=== PATIENT | female | born 2005 ===

== ENCOUNTER 2023-03-15 16:21 | Inpatient (IN) | payer OTHER, SELFPAY ==
[2023-03-15 17:03] VITALS: BP 118/68; PULSE 88; RESP 16; TEMP 36.7; O2SAT 98
--- NOTE | 2023-03-15 17:57 | P.CONHOSP_ITS ---
History of Present Illness Data of Consult Service Date: 03/15/23 Requesting physician: Jorge L Felder Primary Care Provider: Unknown Physician HPI Reason for consult: medical H&P 17-year-old female with history of bipolar disorder, insomnia admitted to Psychiatry with consult placed to hospitalist service for medical H& P. She is sleeping initially on arrival but is easily woken though remains sleepy during exam. She has no other complaints other than feeling fatigued and reports constipation. She denies any alcohol use, illicit drug use, or cigarette smoking but does vape nicotine. Review of Systems Review of Systems: General: No fevers, malaise, unintentional weight loss HEENT: No blurred vision, diplopia. No sore throat, nasal congestion, rhinorrhea, sinus pain, ear pain Cardiovascular: No chest pain, palpitations, or leg edema Respiratory: No shortness of breath, wheezing, cough GI: +constipation. No abdominal pain, nausea, vomiting, diarrhea, melena, hematochezia : No dysuria, hematuria, increased urinary frequency, decreased urinary output MSK: No myalgia, back pain Neuro: No headaches, weakness, paresthesias Skin: No rashes or lesions [facility] Medical History (Updated 03/15/23 @ 17:59 by WILLY Pichardo) No pertinent past medical history Social History Advance Directives: No Advance Directives Information Provided: Yes Meds Allergies Allergy/AdvReac Type Severity Reaction Status Date / Time No Known Allergies Allergy Verified 03/15/23 16:23 Active Medications: Current Medications Acetaminophen (Acetaminophen 325 Mg Tablet) 650 mg PO Q6H PRN PRN Reason: Headache/Pain Mild Scale (1-3) Al Hydroxide/Mg Hydroxide (Magnesium Hydrox/Alum Hydrox 30 Ml Oral.Susp) 30 ml PO Q6H PRN PRN Reason: Heartburn/Nausea Chlorpromazine HCl (Chlorpromazine Hcl 25 Mg Tablet) 50 mg PO Q4H PRN PRN Reason: agitation Hydroxyzine HCl (Hydroxyzine Hcl 25 Mg Tablet) 25 mg PO Q6H PRN PRN Reason: Anxiety Lorazepam (Lorazepam 1 Mg Tablet) 2 mg PO Q4H PRN PRN Reason: agitation Magnesium Hydroxide (Milk Of Magnesia 30 Ml Oral.Susp) 30 ml PO DAILY PRN PRN Reason: Constipation Nicotine Polacrilex (Nicotine Polacrilex 2 Mg Gum) 4 mg BUCCAL Q2H PRN PRN Reason: Nicotine Cravings Trazodone HCl (Trazodone Hcl 50 Mg Tablet) 50 mg PO BEDTIME MRX1 PRN PRN Reason: Insomnia Physical Exam Vital Signs and Narrative: Vital Signs: Last Vital Signs Temp 98.1 F 03/15/23 17:03 Pulse 88 03/15/23 17:03 Resp 16 03/15/23 17:03 BP 118/68 03/15/23 17:03 Pulse Ox 98 03/15/23 17:03 O2 Del Method Room Air 03/15/23 17:03 Constitutional - Somnolent but arousable, No apparent distress Eyes - PERRLA, EOMI Cardiovascular - S1S2, RRR, No edema Respiratory - Normal lung expansion, Normal respiratory effort, No respiratory distress, CTA bilaterally Gastrointestinal - NT / ND; +BS; No rebound or guarding Extremities - no calf tenderness bilaterally, no swelling Musculoskeletal - Normal inspection, normal ROM Skin - Warm/Dry Neurological - awake & oriented x3, CN II-XII in tact, 5/5 strength BUE and BLE Psychological - Appropriate affect Assessment and Plan (1) Routine medical exam: Status: Acute Plan .17-year-old female with history of bipolar disorder, insomnia admitted to Psychiatry with consult placed to hospitalist service for medical H& P. #Mood disorder -plan per psychiatry #Constipation -miralax prn #Nicotine vapin -NRT prn Thank you for allowing me to participate in this consult. Signing off at this time. Please do not hesitate to call for further questions. Time Spent With Patient Time: Total time managing care of this patient today ____ minutes.
[2023-03-15 18:20] VITALS: BMI 30.3
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
[2023-03-15] MEDS: chlorproMAZINE HCl 25 MG TABLET 50 MG PO (19:11)
[2023-03-15] MEDS: LORazepam 1 MG TABLET 2 MG PO (19:11)
[2023-03-15 20:20] VITALS: BP 112/71; PULSE 103; RESP 17; TEMP 36.7; O2SAT 98
[2023-03-16] MEDS: Magnesium Hydrox/Alum Hydrox 30 ML ORAL.SUSP PO (08:24)
[2023-03-16] MEDS: chlorproMAZINE HCl 25 MG TABLET 50 MG PO ×3 (08:24→20:42)
[2023-03-16] MEDS: hydrOXYzine HCL 25 MG TABLET PO (08:24)
[2023-03-16] MEDS: LORazepam 1 MG TABLET 2 MG PO ×2 (08:24→13:31)
[2023-03-16 09:29] LABS: Estimated Average Glucose 91 mg/dL; Hemoglobin A1c % 4.8 %
[2023-03-16 09:33] VITALS: BP 124/85; PULSE 114; RESP 18; TEMP 36.6; O2SAT 99
[2023-03-16 09:39] LABS: Alanine Aminotransferase 17 U/L (0-31); Alkaline Phosphatase 58 U/L (39-117); Anion Gap 11 (12-20); Aspartate Amino Transferase 18 U/L (5-31); Bilirubin Total 0.2 mg/dL (0.0-1.0); Blood Urea Nitrogen 13 mg/dL (9-16); Calcium 9.4 mg/dL (8.4-10.2); Chloride 107 mmol/L (96-108); Cholesterol 117 mg/dL; Creatinine Clr Calc Pharmacy 127.4; Estimated Glomerular Filt Rate > 60; Glucose Fasting 70 mg/dL (60-99); HDL Cholesterol 46 mg/dL; LDL Cholesterol Calculated 64 mg/dl; Potassium 4.3 mmol/L (3.3-5.1); Sodium 138 mmol/L (135-145); Total Protein 6.5 g/dL (6.5-8.0); Triglycerides 39 mg/dL
[2023-03-16 09:53] LABS: Carbon Dioxide 24 mmol/L (22-29)
[2023-03-16 09:54] LABS: Free T4 (Free Thyroxine) 0.85 ng/dL (0.71-1.85); Thyroid Stimulating Hormone 2.45 uIU/mL (0.32-4.0)
[2023-03-16 10:07] LABS: Folate 8.1 ng/mL (> or = 4.0); Vitamin B12 267 pg/mL (200-900)
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
[2023-03-16] MEDS: LORazepam 1 MG TABLET PO (19:24)
[2023-03-16] MEDS: OLANZapine ODT 10 MG TAB.RAPDIS TRANSLINGU (19:24)
[2023-03-16 20:27] VITALS: BP 120/80; PULSE 111; RESP 16; TEMP 36.6; O2SAT 99
[2023-03-16] MEDS: traZODone HCL 50 MG TABLET PO (20:48)
[2023-03-17 06:00] VITALS: BP 134/60; PULSE 84; RESP 18; TEMP 36.8; O2SAT 98
[2023-03-17] MEDS: LORazepam 1 MG TABLET PO ×3 (09:06→21:24)
[2023-03-17] MEDS: hydrOXYzine HCL 25 MG TABLET PO (09:06)
[2023-03-17] MEDS: chlorproMAZINE HCl 25 MG TABLET 50 MG PO ×2 (09:06→21:25)
--- NOTE | 2023-03-17 14:36 | HO.PSYCHPN ---
Subjective Subjective Date of Service: 03/17/23 Reason For Visit: F31.9 Subjective Notes: 3 Day ( 03/22/2023) Medical Problems Affecting Mental Status: No Interim History: met patient. Discussed with Nursing. Chart reviewed. As per nursing slightly more anxious. On telephone may be arguing with boyfriend and also upset with mother. Three-day notice which on 03/22/2023. Patient wants to continue with three-day notice process. Reports sleep has been poor, feeling more labile and upset. Also reports wanting to be discharged to stay with her boyfriend in [place] and return to work. Denies SI. Denies overt paranoia or hallucinations. We discussed that olanzapine 10 mg a just been started and therefore monitoring same rather than making additional medication changes. [place] okay regarding this plan. Medication Compliance: Yes Side effects from medications: No Attending Groups: Intermittent Review of Systems Acute medical concerns: No Review of Systems Review of Systems Unremarkable Mental Status Exam Mental Status Exam Narrative: Pt is alert and oriented; behavior is cooperative and calm; patient is not in distress; dressed in casual attire with unkempt hair; mood is described as ok ; eye contact appropriate; Speech is slow, volume and prosody and not pressured; no psychomotor agitation/retardation present; thought process is organized and goal directed; Thought content is on being discharged; no overt delusional thoughts; denies HI. denies current suicidal ideation. denies current auditory hallucinations. Denies VH. Patients insight and judgment are poor. Diagnostics Vital Signs (24Hr): Vital Signs - 24 hr 03/16/23 20:27 03/17/23 06:00 Temperature 97.8 F 98.3 F Pulse Rate 111 H 84 Respiratory Rate 16 18 Blood Pressure 120/80 134/60 Pulse Oximetry 99 98 Oxygen Delivery Method Room Air Room Air BMI result Body Mass Index 30.3 Labs 03/16/23 08:53 Labs: Laboratory Results - last 48 hr 03/16/23 03/16/23 03/16/23 08:53 08:53 08:53 Sodium 138 Potassium 4.3 Chloride 107 Carbon Dioxide 24 Anion Gap 11 L BUN 13 Creatinine 0.70 Estim Creat Clear Calc 127.4 Estimated GFR > 60 Fasting Glucose 70 Estimat Average Glucose 91 Hemoglobin A1c % 4.8 Calcium 9.4 Total Bilirubin 0.2 AST 18 ALT 17 Alkaline Phosphatase 58 Total Protein 6.5 Albumin 4.0 Triglycerides 39 Cholesterol 117 LDL Cholesterol, Calc 64 HDL Cholesterol 46 Vitamin B12 267 Folate 8.1 TSH 2.45 Free T4 0.85 Medications Medications Current Medications Acetaminophen (Acetaminophen 325 Mg Tablet) 650 mg PO Q6H PRN PRN Reason: Headache/Pain Mild Scale (1-3) Al Hydroxide/Mg Hydroxide (Magnesium Hydrox/Alum Hydrox 30 Ml Oral.Susp) 30 ml PO Q6H PRN PRN Reason: Heartburn/Nausea Last Admin: 03/16/23 08:24 Dose: 30 ml Chlorpromazine HCl (Chlorpromazine Hcl 25 Mg Tablet) 50 mg PO Q4H PRN PRN Reason: symptoms of psychosis Last Admin: 03/17/23 09:06 Dose: 50 mg Hydroxyzine HCl (Hydroxyzine Hcl 25 Mg Tablet) 25 mg PO Q6H PRN PRN Reason: Anxiety Last Admin: 03/17/23 09:06 Dose: 25 mg Lorazepam (Lorazepam 1 Mg Tablet) 1 mg PO Q4H PRN PRN Reason: agitation Last Admin: 03/17/23 09:06 Dose: 1 mg Magnesium Hydroxide (Milk Of Magnesia 30 Ml Oral.Susp) 30 ml PO DAILY PRN PRN Reason: Constipation Nicotine Polacrilex (Nicotine Polacrilex 2 Mg Gum) 4 mg BUCCAL Q2H PRN PRN Reason: Nicotine Cravings Olanzapine (Olanzapine Odt 10 Mg Tab.Rapdis) 10 mg TRANSLINGU BEDTIME CARLIE Last Admin: 03/16/23 19:24 Dose: 10 mg Polyethylene Glycol (Polyethylene Glycol 3350 17 Gm Powd.Pack) 17 gm PO DAILY PRN PRN Reason: Constipation Trazodone HCl (Trazodone Hcl 50 Mg Tablet) 50 mg PO BEDTIME MRX1 PRN PRN Reason: Insomnia Last Admin: 03/16/23 20:48 Dose: 50 mg Allergies Allergies Allergy/AdvReac Type Severity Reaction Status Date / Time No Known Allergies Allergy Verified 03/15/23 16:23 Assessment & Plan Assessment & Plan (1) Schizoaffective disorder: Status: Acute Code(s): F25.9 - Schizoaffective disorder, unspecified Plan Patient is a 17 year old female with hx of bipolar d/o who presented to [facility] ER via EMS after mother and boyfriend reported that patient was making suicidal statements. Patient was recently discharged 4 days ago from an inpatient psychiatric unit in [place]. Plan: 3 day 15 minute checks Obtain collateral Release obtained for [facility]; faxed; waiting on medical records Bipolar vs vs Schizoaffective Clarify recent adm and tx ? RADER had mood stabilizing agaent been used bipolar fam hx monitor response to olanzapine pt seen case reviewed tx team tx plan discussed with DIRECTOR BUSINESS TRAVEL Start: Zyprexa 10mg PO bedtime 03/17/2023: No changes to current treatment plan Reason for continued inpatient stay Substantial Risk for: harm to self Time Spent With Patient Time: Total time managing care of this patient today ____ minutes.
[2023-03-17] MEDS: Nicotine Polacrilex 2 MG GUM 4 MG BUCCAL (16:38)
[2023-03-17 20:10] VITALS: BP 133/81; PULSE 110; RESP 18; TEMP 36.9; O2SAT 100
[2023-03-17] MEDS: OLANZapine ODT 10 MG TAB.RAPDIS TRANSLINGU (20:25)
[2023-03-17] MEDS: traZODone HCL 50 MG TABLET PO (21:24)
[2023-03-18] MEDS: polyethylene glycoL 3350 17 GM POWD.PACK PO (05:31)
[2023-03-18 08:27] VITALS: BP 122/72; PULSE 101; RESP 16; TEMP 36.2; O2SAT 99
[2023-03-18] MEDS: LORazepam 1 MG TABLET PO (10:25)
[2023-03-18] MEDS: chlorproMAZINE HCl 25 MG TABLET 50 MG PO ×2 (10:25→16:53)
--- NOTE | 2023-03-18 13:49 | HO.PSYCHPN ---
Subjective Subjective Date of Service: 03/18/23 Reason For Visit: F31.9 Subjective Notes: 3 Day Medical Problems Affecting Mental Status: No Interim History: met patient. Discussed with Nursing. Chart reviewed. Less anxious. ?constipation, GERD, nicotine withdrawal. Three-day notice which on 03/22/2023. Patient wants to continue with three-day notice process. Reports sleep has been beter and mood more jessica. Would like olanzapine increased to minimize prn meds which are sedating. Denies SI. Denies overt paranoia or hallucinations. Denied GERD symptoms or nicotine withdrawal. Some constipation- open to colace. Medication Compliance: Yes Side effects from medications: No Attending Groups: Yes Review of Systems Acute medical concerns: No Review of Systems Review of Systems constipation Mental Status Exam Mental Status Exam Narrative: Pt is alert and oriented; behavior is cooperative and calm; patient is not in distress; dressed in casual attire with unkempt hair; mood is described as ok ; eye contact appropriate; Speech is slow, volume and prosody and not pressured; no psychomotor agitation/retardation present; thought process is organized and goal directed; Thought content is on being discharged; no overt delusional thoughts; denies HI. denies current suicidal ideation. denies current auditory hallucinations. Denies VH. Patients insight and judgment are poor. Diagnostics Vital Signs (24Hr): Vital Signs - 24 hr 03/17/23 20:10 03/18/23 08:27 Temperature 98.4 F 97.1 F Pulse Rate 110 H 101 H Respiratory Rate 18 16 Blood Pressure 133/81 122/72 Pulse Oximetry 100 99 Oxygen Delivery Method Room Air Room Air BMI result Body Mass Index 30.3 Labs 03/16/23 08:53 Medications Medications Current Medications Acetaminophen (Acetaminophen 325 Mg Tablet) 650 mg PO Q6H PRN PRN Reason: Headache/Pain Mild Scale (1-3) Al Hydroxide/Mg Hydroxide (Magnesium Hydrox/Alum Hydrox 30 Ml Oral.Susp) 30 ml PO Q6H PRN PRN Reason: Heartburn/Nausea Last Admin: 03/16/23 08:24 Dose: 30 ml Chlorpromazine HCl (Chlorpromazine Hcl 25 Mg Tablet) 50 mg PO Q4H PRN PRN Reason: symptoms of psychosis Last Admin: 03/18/23 10:25 Dose: 50 mg Hydroxyzine HCl (Hydroxyzine Hcl 25 Mg Tablet) 25 mg PO Q6H PRN PRN Reason: Anxiety Last Admin: 03/17/23 09:06 Dose: 25 mg Lorazepam (Lorazepam 1 Mg Tablet) 1 mg PO Q4H PRN PRN Reason: agitation Last Admin: 03/18/23 10:25 Dose: 1 mg Magnesium Hydroxide (Milk Of Magnesia 30 Ml Oral.Susp) 30 ml PO DAILY PRN PRN Reason: Constipation Nicotine Polacrilex (Nicotine Polacrilex 2 Mg Gum) 4 mg BUCCAL Q2H PRN PRN Reason: Nicotine Cravings Last Admin: 03/17/23 16:38 Dose: 4 mg Olanzapine (Olanzapine Odt 10 Mg Tab.Rapdis) 10 mg TRANSLINGU BEDTIME CARLIE Last Admin: 03/17/23 20:25 Dose: 10 mg Polyethylene Glycol (Polyethylene Glycol 3350 17 Gm Powd.Pack) 17 gm PO DAILY PRN PRN Reason: Constipation Last Admin: 03/18/23 05:31 Dose: 17 gm Trazodone HCl (Trazodone Hcl 50 Mg Tablet) 50 mg PO BEDTIME MRX1 PRN PRN Reason: Insomnia Last Admin: 03/17/23 21:24 Dose: 50 mg Allergies Allergies Allergy/AdvReac Type Severity Reaction Status Date / Time No Known Allergies Allergy Verified 03/15/23 16:23 Assessment & Plan Assessment & Plan (1) Schizoaffective disorder: Status: Acute Code(s): F25.9 - Schizoaffective disorder, unspecified Plan Patient is a 17 year old female with hx of bipolar d/o who presented to [facility] ER via EMS after mother and boyfriend reported that patient was making suicidal statements. Patient was recently discharged 4 days ago from an inpatient psychiatric unit in [place]. Plan: 3 day 15 minute checks Obtain collateral Release obtained for [facility]; faxed; waiting on medical records Bipolar vs vs Schizoaffective Clarify recent adm and tx ? RADER had mood stabilizing agaent been used bipolar fam hx monitor response to olanzapine pt seen case reviewed tx team tx plan discussed with BUSINESS INTERN Start: Zyprexa 10mg PO bedtime 03/18/2023: increase olanzapine to 15mg (pt request to minimize sedating prn med needs). Colace for constipation Reason for continued inpatient stay Substantial Risk for: inability to function Time Spent With Patient Time: Total time managing care of this patient today ____ minutes.
[2023-03-18] MEDS: Nicotine Polacrilex 2 MG GUM 4 MG BUCCAL (17:21)
[2023-03-18 20:08] VITALS: BP 125/88; PULSE 117; RESP 18; TEMP 36.3; O2SAT 99
[2023-03-19] MEDS: Nicotine Polacrilex 2 MG GUM 4 MG BUCCAL ×2 (05:39→10:49)
[2023-03-19 08:22] VITALS: BP 138/89; PULSE 103; RESP 18; TEMP 36.6; O2SAT 99
--- NOTE | 2023-03-19 09:52 | P.PNPSI_ITS ---
Subjective Subjective Date of Service: 03/19/23 Reason For Visit: F31.9 Subjective Notes: 3 Day Interim History: Reviewed in team and with Dr. Murphy. Patient presents calm and cooperative. She reports feeling better today. Patient stated, I'm not suicidal or homicidal. I'm not having any thoughts of the devil. The Zyprexa and Ativan helped me. Patient tearful during 1:1; stating she signed a 3 day d/t already being in the hospital for a month in [place] . Patient reports when she left the hospital in [place] she stopped taking Invega and she became worse and couldn't sleep . Patient reports she would like referrals to outpatient providers in the area. Medication Compliance: Yes Side effects from medications: No Attending Groups: Yes Review of Systems Constitutional: Reports as per HPI Eyes: Reports as per HPI Reports as per HPI Cardiovascular: Reports as per HPI Respiratory: Reports as per HPI Gastrointestinal: Reports as per HPI Genitourinary: Reports as per HPI Musculoskeletal: Reports as per HPI Skin/Breast: Reports as per HPI Reports as per HPI Psychiatric: Reports as per HPI Endocrine: Reports as per HPI Hematologic/Lymphatic: Reports as per HPI Allergic/Immunologic: Reports as per HPI Mental Status Exam Mental Status Exam Narrative: Pt is alert and oriented; behavior is cooperative and calm; patient is not in distress; dressed in casual attire; mood is described as good ; eye contact appropriate; Speech is normal rate, volume and prosody and not pressured; no psychomotor agitation/retardation present; thought process is organized and goal directed; Thought content is on tx; otherwise pertinent to relevant topics and without any delusional content, paranoid ideations or grandiosity; denies any SI/HI. There is no evidence of perceptual disturbance. Patients insight and judgment are fair. Diagnostics Vital Signs (24Hr): Vital Signs - 24 hr 03/18/23 20:08 03/19/23 08:22 Temperature 97.4 F 97.9 F Pulse Rate 117 H 103 H Respiratory Rate 18 18 Blood Pressure 125/88 138/89 Pulse Oximetry 99 99 Oxygen Delivery Method Room Air Room Air BMI result Body Mass Index 30.3 Labs 03/16/23 08:53 Medications Medications Current Medications Acetaminophen (Acetaminophen 325 Mg Tablet) 650 mg PO Q6H PRN PRN Reason: Headache/Pain Mild Scale (1-3) Al Hydroxide/Mg Hydroxide (Magnesium Hydrox/Alum Hydrox 30 Ml Oral.Susp) 30 ml PO Q6H PRN PRN Reason: Heartburn/Nausea Last Admin: 03/16/23 08:24 Dose: 30 ml Chlorpromazine HCl (Chlorpromazine Hcl 25 Mg Tablet) 50 mg PO Q4H PRN PRN Reason: symptoms of psychosis Last Admin: 03/18/23 16:53 Dose: 50 mg Docusate Sodium (Docusate Sodium 100 Mg Capsule) 100 mg PO BID CARLIE Last Admin: 03/19/23 08:45 Dose: 100 mg Hydroxyzine HCl (Hydroxyzine Hcl 25 Mg Tablet) 25 mg PO Q6H PRN PRN Reason: Anxiety Last Admin: 03/17/23 09:06 Dose: 25 mg Lorazepam (Lorazepam 1 Mg Tablet) 1 mg PO Q4H PRN PRN Reason: agitation Last Admin: 03/18/23 10:25 Dose: 1 mg Magnesium Hydroxide (Milk Of Magnesia 30 Ml Oral.Susp) 30 ml PO DAILY PRN PRN Reason: Constipation Nicotine Polacrilex (Nicotine Polacrilex 2 Mg Gum) 4 mg BUCCAL Q2H PRN PRN Reason: Nicotine Cravings Last Admin: 03/19/23 05:39 Dose: 4 mg Olanzapine (Olanzapine Odt 10 Mg Tab.Rapdis) 15 mg TRANSLINGU BEDTIME CARLIE Last Admin: 03/18/23 20:12 Dose: 15 mg Polyethylene Glycol (Polyethylene Glycol 3350 17 Gm Powd.Pack) 17 gm PO DAILY PRN PRN Reason: Constipation Last Admin: 03/18/23 05:31 Dose: 17 gm Trazodone HCl (Trazodone Hcl 50 Mg Tablet) 50 mg PO BEDTIME MRX1 PRN PRN Reason: Insomnia Last Admin: 03/17/23 21:24 Dose: 50 mg Allergies Allergies Allergy/AdvReac Type Severity Reaction Status Date / Time No Known Allergies Allergy Verified 03/15/23 16:23 Assessment & Plan Assessment & Plan (1) Schizoaffective disorder: Status: Acute Code(s): F25.9 - Schizoaffective disorder, unspecified Plan Patient is a 17 year old female with hx of bipolar d/o who presented to [facility] ER via EMS after mother and boyfriend reported that patient was making suicidal statements. Patient was recently discharged 4 days ago from an inpatient psychiatric unit in [place]. Plan: 3 day 15 minute checks Release obtained for [facility]; faxed; waiting on medical records Bipolar vs vs Schizoaffective Clarify recent adm and tx ? RADER had mood stabilizing agaent been used bipolar fam hx Zyprexa 15mg PO bedtime 03/18: increase olanzapine to 15mg (pt request to minimize sedating prn med needs). Colace for constipation 03/19: Reports zyprexa and ativan have been helpful. Presents organized and future oriented. Hoping to be discharged this week to look for an apartment and job with her boyfriend. Would like referrals to outpatient providers in the area. Continue current tx plan. Patient educated on: diagnosis, medication risk/benefits and therapeutic strategies Informed Consent: further education needed Reason for continued inpatient stay Substantial Risk for: med/psych decompensation Time Spent With Patient Time: Total time managing care of this patient today ____ minutes.
[2023-03-19 20:35] VITALS: BP 124/78; PULSE 102; RESP 18; TEMP 36.2; O2SAT 99
[2023-03-19] MEDS: LORazepam 1 MG TABLET PO (20:41)
--- NOTE | 2023-03-19 21:40 | PC.NURSE ---
Amaury, is noted to be visible on the unit, she is pleasant and social with staff. limited engagement with peers, attended evening groups. denies suicidal/homicidal ideation, auditory/visual hallucinations, she endorses depression and anxiety both 10/10 and received PRN Ativan with apparent positive effect. no behavoral concerns, monitor for safety, continue Plan of Care
[2023-03-20 09:01] VITALS: BP 139/87; PULSE 115; RESP 18; TEMP 36.6; O2SAT 98
[2023-03-20] MEDS: LORazepam 1 MG TABLET PO ×3 (11:44→20:52)
--- NOTE | 2023-03-20 15:13 | HO.PSYCHPN ---
Subjective Subjective Date of Service: 03/20/23 Reason For Visit: F31.9 Interim History: Reviewed in team and with RN. Per RN, improved compared to admission. Elizabeth improved and eager to leave as soon as she can. She is tolerating the Olanzapine well. She is participating in groups. Not loud. Denoes SI. Denies AVH today. Review of Systems Review of Systems constipation Constitutional: Reports as per HPI Eyes: Reports as per HPI Reports as per HPI Cardiovascular: Reports as per HPI Respiratory: Reports as per HPI Gastrointestinal: Reports as per HPI Musculoskeletal: Reports as per HPI Skin/Breast: Reports as per HPI Reports as per HPI Psychiatric: Reports as per HPI Endocrine: Reports as per HPI Hematologic/Lymphatic: Reports as per HPI Allergic/Immunologic: Reports as per HPI Mental Status Exam Mental Status Exam Narrative: Pt is alert and oriented; behavior is cooperative and calm; patient is not in distress; dressed in casual attire; mood is described as depressed because I am here. ; eye contact appropriate; Speech is normal rate, volume and prosody and not pressured; no psychomotor agitation/retardation present; thought process is organized and goal directed; Thought content is on tx; otherwise pertinent to relevant topics and without any delusional content, paranoid ideations or grandiosity; denies any SI/HI. There is no evidence of perceptual disturbance. Patients insight and judgment are fair. Diagnostics Vital Signs (24Hr): Vital Signs - 24 hr 03/19/23 20:35 03/20/23 09:01 Temperature 97.2 F 97.8 F Pulse Rate 102 H 115 H Respiratory Rate 18 18 Blood Pressure 124/78 139/87 Pulse Oximetry 99 98 Oxygen Delivery Method Room Air Room Air BMI result Body Mass Index 30.3 Labs 03/16/23 08:53 Medications Medications Current Medications Acetaminophen (Acetaminophen 325 Mg Tablet) 650 mg PO Q6H PRN PRN Reason: Headache/Pain Mild Scale (1-3) Al Hydroxide/Mg Hydroxide (Magnesium Hydrox/Alum Hydrox 30 Ml Oral.Susp) 30 ml PO Q6H PRN PRN Reason: Heartburn/Nausea Last Admin: 03/16/23 08:24 Dose: 30 ml Chlorpromazine HCl (Chlorpromazine Hcl 25 Mg Tablet) 50 mg PO Q4H PRN PRN Reason: symptoms of psychosis Last Admin: 03/18/23 16:53 Dose: 50 mg Docusate Sodium (Docusate Sodium 100 Mg Capsule) 100 mg PO BID CARLIE Last Admin: 03/20/23 09:20 Dose: 100 mg Hydroxyzine HCl (Hydroxyzine Hcl 25 Mg Tablet) 25 mg PO Q6H PRN PRN Reason: Anxiety Last Admin: 03/17/23 09:06 Dose: 25 mg Lorazepam (Lorazepam 1 Mg Tablet) 1 mg PO Q4H PRN PRN Reason: agitation Last Admin: 03/20/23 11:44 Dose: 1 mg Magnesium Hydroxide (Milk Of Magnesia 30 Ml Oral.Susp) 30 ml PO DAILY PRN PRN Reason: Constipation Nicotine Polacrilex (Nicotine Polacrilex 2 Mg Gum) 4 mg BUCCAL Q2H PRN PRN Reason: Nicotine Cravings Last Admin: 03/19/23 10:49 Dose: 4 mg Olanzapine (Olanzapine Odt 10 Mg Tab.Rapdis) 15 mg TRANSLINGU BEDTIME CARLIE Last Admin: 03/19/23 20:41 Dose: 15 mg Polyethylene Glycol (Polyethylene Glycol 3350 17 Gm Powd.Pack) 17 gm PO DAILY PRN PRN Reason: Constipation Last Admin: 03/18/23 05:31 Dose: 17 gm Trazodone HCl (Trazodone Hcl 50 Mg Tablet) 50 mg PO BEDTIME MRX1 PRN PRN Reason: Insomnia Last Admin: 03/17/23 21:24 Dose: 50 mg Allergies Allergies Allergy/AdvReac Type Severity Reaction Status Date / Time No Known Allergies Allergy Verified 03/15/23 16:23 Assessment & Plan Assessment & Plan (1) Schizoaffective disorder: Status: Acute Code(s): F25.9 - Schizoaffective disorder, unspecified Plan Patient is a 17 year old female with hx of bipolar d/o who presented to [facility] ER via EMS after mother and boyfriend reported that patient was making suicidal statements. Patient was recently discharged 4 days ago from an inpatient psychiatric unit in [place]. Plan: 3 day 15 minute checks Release obtained for [facility]; faxed; waiting on medical records Bipolar vs vs Schizoaffective Clarify recent adm and tx ? RADER had mood stabilizing agaent been used bipolar fam hx Zyprexa 15mg PO bedtime 03/18: increase olanzapine to 15mg (pt request to minimize sedating prn med needs). Colace for constipation 03/19: Reports zyprexa and ativan have been helpful. Presents organized and future oriented. Hoping to be discharged this week to look for an apartment and job with her boyfriend. Would like referrals to outpatient providers in the area. Continue current tx plan. 03/20: Continue current treatment plan. Reason for continued inpatient stay Substantial Risk for: inability to function and rapid decompensation Time Spent With Patient Time: Total time managing care of this patient today ____ minutes.
[2023-03-20] MEDS: Milk of Magnesia 30 ML ORAL.SUSP PO (16:53)
[2023-03-20 19:15] VITALS: BP 128/93; PULSE 85; RESP 16; TEMP 36.7; O2SAT 99
[2023-03-21] MEDS: LORazepam 1 MG TABLET PO ×2 (02:28→08:38)
[2023-03-21 08:00] VITALS: BP 121/66; PULSE 90; RESP 18; TEMP 36.7; O2SAT 100
[2023-03-21] MEDS: hydrOXYzine HCL 25 MG TABLET PO (08:39)
--- NOTE | 2023-03-21 11:38 | PM.PSYDC ---
DS: Providers Provider Date of Service: 03/21/23 Date of admission: 03/15/23 16:21 Date of discharge: 03/21/23 Primary care physician: Unknown Physician Admitting clinician: Yolis Allen Attending physician on admission: Antonio Haq Consults: 03/15/23 16:23 Consult to Hospitalist Routine Comment: Consulting Provider: Hospitalist Reason For Exam: OSH admission Attending physician on discharge: Antonio Haq Discharging clinician: Yolis Allen DS: Diagnosis Discharge Diagnosis (1) Schizoaffective disorder: Status: Acute DS: Medications Discharge Medications Home Medications: Previous Rx's Medication Instructions Recorded olanzapine 10 mg disintegrating 15 mg translingual BEDTIME 30 days 03/21/23 tablet #45 tabs Mental Status Exam Mental Status Exam Narrative: Pt is alert and oriented; behavior is cooperative and calm; patient is not in distress; dressed in casual attire; mood is described as good ; eye contact appropriate; Speech is normal rate, volume and prosody and not pressured; no psychomotor agitation/retardation present; thought process is organized and goal directed; Thought content is on discharge; otherwise pertinent to relevant topics and without any delusional content, paranoid ideations or grandiosity; denies any SI/HI. There is no evidence of perceptual disturbance. Patients insight and judgment are fair. Data Data Completed and Pending Completed studies during hospitalization [Text1]: 03/16/23 03/16/23 03/16/23 08:53 08:53 08:53 Sodium 138 Potassium 4.3 Chloride 107 Carbon Dioxide 24 Anion Gap 11 L BUN 13 Creatinine 0.70 Estim Creat Clear Calc 127.4 Estimated GFR > 60 Fasting Glucose 70 Estimat Average Glucose 91 Hemoglobin A1c % 4.8 Calcium 9.4 Total Bilirubin 0.2 AST 18 ALT 17 Alkaline Phosphatase 58 Total Protein 6.5 Albumin 4.0 Triglycerides 39 Cholesterol 117 LDL Cholesterol, Calc 64 HDL Cholesterol 46 Vitamin B12 267 Folate 8.1 TSH 2.45 Free T4 0.85 DS: Summary Hospital Course Hospital Course: Patient is a 17 year old female with hx of bipolar d/o who presented to [facility] ER via EMS after mother and boyfriend reported that patient was making suicidal statements. Patient was recently discharged 4 days ago from an inpatient psychiatric unit in [place]. During admission assessment patient was calm and cooperative. Patient presented with voodoo delusional thought content. When asked what brought her to the hospital, patient stated, I heard the voice of the devil in my head 3 days ago. My mother's demons keep bothering me and are in my way . Patient requesting medication for sleep and bipolar disorder . Patient stated, I don't want to stay here long. I just want medications that can help me sleep at night and then something for my bipolar disorder. There is evil here . When T/W asked what she meant by evil; patient stated, the devil . Patient denies visual hallucinations; reports she can feel their energy . Reports suicidal ideation; patient stated, I'm too scared to do it and go [place] [facility] . Patient reports she would like to receive care on an outpatient basis rather than being inpatient. UTOX positive for marijuana. Patient denies any other substance use. Patient was started on Zyprexa and Ativan; risks/benefits discuzzed. She reported feeling better . Patient stated, I'm not suicidal or homicidal. I'm not having any thoughts of the devil. The Zyprexa and Ativan helped me. Patient tearful during 1:1; stating she signed a 3 day d/t already being in the hospital for a month in [place] . Patient reports when she left the hospital in [place] she stopped taking Invega and she became worse and couldn't sleep . Patient reports she would like referrals to outpatient providers in the area. Patient presents organized and future oriented; plans to look for an apartment and job with her boyfriend. Patient reports she plans to continue taking her medication as prescribed and following up with her outpatient providers. Time spent discussing smoking cessation with patient: 3 to 10 minutes Status at Discharge Cognitive/behavioral status at discharge: Patient was interviewed prior to discharge and found to be fully oriented and without any SI or HI. Patient has insight and demonstrates good judgment in terms of wanting to pursue treatment. Patient is not in imminent risk of harm to self or others and has a safety plan that includes presenting to the closest ER or calling 911 if feeling unsafe. Patient has been observed closely by nursing and unit staff throughout admission; patient has not engaged in any behaviors that suggest dangerousness to self or others and has demonstrated appropriate behaviors and impulse control. Functional status at discharge: independent ambulation Overall status at discharge: patient is back to baseline Time Spent with Patient Time attestation: Total time managing care of this patient today ____ minutes. Time spent: Less than 30 minutes Discharge Plan Discharge Anticipated Discharge Date/Time: 03/21/23 15:00 Patient Disposition: Home, Self-Care Discharge Diagnosis: Schizoaffective d/o Referrals: [facility] [Other] - 1 Week (NEW Patients need to walk in. Walk in hours 9-5. Just bring discharge paperwork from hospital, they will do intake and establish appointments then. ) [facility] [Provider Group] - 1 Week (Follow up with PCP) Discharge Medications: New olanzapine 10 mg Tablet,Disintegrating 15 mg translingual BEDTIME 30 Days Qty: 45 0RF Discharge Orders: Discharge Order (Routine); Ordered 03/21/23 Ordered By: Yolis Allen Diet: Regular diet Activity on Discharge: As tolerated Stand Alone Forms: Patient Portal Discharge page, Community Support Care Plan Goals: Maintain mood and safe behaviors Take medications as prescribed Practice coping skills Continue with outpatient providers and reach out to them as needed Health Concerns: Mood stability and behaviors Plan of Treatment: Follow up with your PCP, psychiatric provider and other outpatient providers regarding above concerns Take medications as prescribed Assessment: Patient was interviewed prior to discharge and found to be fully oriented and without any SI or HI. Patient has insight and demonstrates good judgment in terms of wanting to pursue treatment. Patient is not in imminent risk of harm to self or others and has a safety plan that includes presenting to the closest ER or calling 911 if feeling unsafe. Patient has been observed closely by nursing and unit staff throughout admission; patient has not engaged in any behaviors that suggest dangerousness to self or others and has demonstrated appropriate behaviors and impulse contro.l
[2023-03-21] MEDS: Nicotine Polacrilex 2 MG GUM 4 MG BUCCAL (13:32)
== END 2023-03-21 14:55 | disposition home or self-care (01) | DRG 750 ==
PROVIDERS: Admitting Provider Psychiatry & Neurology Psychiatry; Responsible Provider Registered Nurse; Visit Provider Psychiatry & Neurology Psychiatry
DX: F25.9 Schizoaffective disorder, unspecified (principal); R45.851 Suicidal ideations; K21.9 Gastro-esophageal reflux disease without esophagitis; F17.200 Nicotine dependence, unspecified, uncomplicated; K59.00 Constipation, unspecified; Z71.6 Tobacco abuse counseling
CPT/HCPCS: 36415; 80053; 80061; 82607; 82746; 83036; 84439; 84443

== ENCOUNTER → 2023-03-15 16:21 | Outpatient (BNV) | payer OTHER, SELFPAY | PROVIDERS: Admitting Provider Psychiatry & Neurology Psychiatry; Responsible Provider Registered Nurse; Visit Provider Registered Nurse | DX: F25.1 Schizoaffective disorder, depressive type (principal) | CPT/HCPCS: 99231; 99232; 99233; 99238 ==